=== PATIENT | female | born 1960 | race African-American/Black ===

== ENCOUNTER 2025-03-21 17:01 | Inpatient (IN) | payer OTHER ==
[~2025-03-21] VITALS: Ht 175.3 cm; Wt 112.0 kg
--- NOTE | 2025-03-21 17:14 | ECG ---
[facility] Test Date: 2025-03-21 Test Time: 17:13:36 Pat Name: OVIDIO DUPONT Department: ED Room: 0250 Gender: F Tube Lancer: GP : 1960 Requested By: DESIRE VALDES Order Number: [id number] Reading MD: Dalton Lyn Measurements Intervals [place] Rate: 122 P: 0 ND: 0 QRS: 38 QRSD: 80 T: 54 QT: 309 QTc: 441 Interpretive Statements Atrial fibrillation Ventricular bigeminy Low voltage, precordial leads Electronically Signed On 03-24-2025 17:53:45 PST by Dalton Lyn Please click the below link to view image of tracing.
[2025-03-21 18:04] LABS: Hematocrit 25.6 % (36.0-46.0); Hemoglobin 8.7 g/dL (12.2-16.2); Mean Corpuscular Hemoglobin 30.3 pg (28.0-32.0); Mean Corpuscular Volume 89.4 fL (80.0-100.0); Nucleated Red Blood Cells % 0.0 %
[2025-03-21 18:17] LABS: Chloride 106 mmol/L (98-107); Potassium 3.9 mmol/L (3.5-5.1); Sodium 143 mmol/L (136-145)
[2025-03-21 18:18] LABS: Anion Gap 11 (5-15); Calcium 9.3 mg/dL (8.7-10.4); Carbon Dioxide 26 mmol/L (20-31)
[2025-03-21 18:23] LABS: BUN/Creatinine Ratio 16.3 (10.0-20.0)
[2025-03-21 18:26] LABS: Blood Urea Nitrogen 24 mg/dL (9-23); Glucose 145 mg/dL (74-106)
--- NOTE | 2025-03-21 18:44 | ED.PDOC ---
History of Present Illness HPI Comments 64 y/o obese F presents with c/c of generalized weakness for a few days She suspects onset of symptoms after being bitten by "bugs" in her sleep on 03/18/25. Patient reports being bed-bound and not eating or drinking anything but is still able to urinate and have bowel movements since then. She also mentions not taking her medications for 2 days. Denies any fever, numbness, tingling, shortness of breath, chest pain, or further acute symptoms. HPI: Initial Vitals BP: 142/64 HR: 77 RR:18 O2: 97% Temp: 97.9F Past Medical History: myasthenia gravis, hypertension Past Surgical History: thymectomy, hysterectomy, -eye surgery CRESENCIO: Generalized weakness HPI: Poor Historian. REVIEW OF SYSTEMS: CONSTITUTIONAL: Denies acute: fever, diaphoresis, chills, HEAD: Denies acute: headache, photophobia Eyes: Denies acute: Double vision, vision loss, eye pain, eye discharge. EARS: Denies acute: tinnitus, hearing loss, ear discharge, ear pain, THROAT: Denies acute: sore throat, swelling, difficulty swallowing , pain with swallowing, change in voice. NECK: Denies acute: neck pain, neck swelling, stiff neck. HEART: Denies acute : chest pain, palpitations, LUNGS: Denies acute: SOB, wheezing, cough, hemoptysis ABDOMEN: Denies acute: abdominal pain, Nausea, Vomiting, diarrhea, melena , hematemesis, hematochezia SKIN: Denies acute: rash, redness, lesions, itchiness. EXTREMITIES: Denies acute: calf pain, numbness, tingling, weakness, denies pain in extremity. Denies acute: Low back pain. Neuro: Denies acute: focal neurological deficit, motor or sensory focal neurological deficit, tremors, seizure like activity, confusion, dizziness, change in mental status, loss of bowel or bladder function, cauda equina like symptoms. : Denies acute: dysuria, hematuria, flank pain, increase in urinary frequency. PSYCH: Denies acute: hallucination, suicidal ideation, homicidal ideation. FEMALE: Denies acute: abnormal vaginal bleeding, foul odor, unusual discharge. PHYSICAL EXAM: General: ---no-----acute distress, awake and alert. Head: normocephalic, atraumatic. No raccoon's eyes, no osborne sign. Neck: supple, trachea is midline, no swelling. Throat: Normal phonation. Eyes:, no erythema, no purulent discharge, no proptosis, slightly icterus. Heart: regular rate, regular rhythm, no significant murmur appreciated. Lungs: no apparent respiratory distress, Able to speak in full sentences. No wheezing, no rhonchi, no crackles. No stridors Clear to auscultation bilaterally. Abdomen: non tender to palpation, non distended, soft, no guarding, no rebound, + bowel sounds. Neuro: Awake, Alert, oriented to name, self, situation, follows commands GCS=15. Speech is normal. Skin: no petechia, no purpura, no cyanosis, non-pale, not jaundice. Lower extremities: --no - Pitting edema no deformity, no focal swelling, no calf TTP. Makes eye contact. 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 moves all four extremities. Face: no apparent facial droop. ED COURSE: DISCLAIMER: This medical document was created using an electronic medical record system with voice recognition software and computerized dictation system. Although this document has been carefully reviewed, there might still be some phonetic and typographical errors. Occasional wrong-word or "sound-alike" substitutions may have occurred due to the inherent limitations of voice recognition software. These areas are purely typographical due to imperfections of the software programs and do not reflect any compromise in the patient's medical care. Please read the chart carefully and recognize, using context, where these substitutions have occurred. Chief Complaint: General Weakness Time Seen by MD: 18:15 Reviewed Notes: Nurses Notes Allergies: Coded Allergies: NO KNOWN ALLERGIES (Unverified , 03/21/25) Home Meds Reported Medications Amlodipine Besylate (Amlodipine Besylate) 2.5 Mg Tab, 1 TAB PO DAILY, #30 TAB 5 Refills 03/22/25 Valsartan-Hydrochlorothiazide (Diovan Hct) 160 /12.5 Tab, 1 TAB PO DAILY, #30 TAB 5 Refills 03/22/25 Metoprolol Tartrate (Metoprolol Tartrate) 25 Mg Tab, 1 TAB PO BID, #180 TAB 1 Refill 03/22/25 Apixaban Base (ELIQUIS) 5 Mg Tab, 5 MG PO BID, TAB 03/22/25 Ferrous Sulfate (FERROUS SULFATE) 325 Mg Tb, 325 MG PO, TAB 03/22/25 Information Source: Patient Mode of Arrival: Ambulatory Was a procedure done? Was a procedure done?: No EKG EKG : Pulse Rate (adult): 122 [place]: Normal Cardiac Rhythm: Afib, Aflutter Block: None Hypertrophy: None ST: Normal Comments No STEMI Differential Dx Considerations may include: Includes but not limited to thyroid disease, encephalopathy, electrolyte abnormality, sepsis, infection, intracranial pathology, drug adverse effects, arrhythmia, kidney insufficiency, ACS, CVA, malignancy, anemia X-Ray, Labs, Meds, VS Vital Signs Date Time Temp Pulse Resp B/P (MAP) Pulse Ox O2 Delivery O2 Flow Rate FiO2 03/21/25 21:02 98.9 93 18 109/66 (80) 99 98.9 03/21/25 19:52 76 18 97 Room Air 03/21/25 19:52 98.4 76 18 101/59 (73) 97 98.4 03/21/25 18:44 122 03/21/25 17:13 122 03/21/25 17:04 97.9 77 18 142/64 97 97.9 Lab Test 03/21/25 20:57 03/21/25 18:30 03/21/25 17:54 Range/Units Urine Color Dark-orange Yellow Urine Clarity Ex.turbid Clear Urine pH 6.0 5.0-9.0 Urine Specific [place] 1.017 1.001-1.035 Urine Protein 2+ H Negative Urine Ketones Negative Negative Urine Blood 2+ H Negative /uL Urine Nitrite Negative Negative Urine Bilirubin Negative Negative Urine Urobilinogen 8 H Negative mg/dL Urine Leukocyte Esterase 3+ Negative /uL Urine RBC 26 0 - 4 /hpf Urine WBC Clumps Present None Seen /hpf Urine Microscopic WBC 4957 H 0-5 /HPF Urine Squamous Epithelial Cells Mod <5 /hpf Urine Bacteria Many H None Seen /hpf Urine Mucus Moderate None Seen Urine Creatinine Pending Urine Protein/Creatinine Ratio Pending Urine Sodium Pending Urine Glucose Normal Normal mg/dL Urine Total Protein Pending Sodium Level 141 143 136-145 mmol/L Potassium Level 3.9 3.9 3.5-5.1 mmol/L Chloride Level 105 106 98-107 mmol/L Carbon Dioxide Level 24 26 20-31 mmol/L Anion Gap 12 11 5-15 Blood Urea Nitrogen 20 24 H 9-23 mg/dL Creatinine 1.58 H 1.47 H 0.550-1.02 mg/dL Glomerular Filtration Rate Calc 36 40 >90 mL/min BUN/Creatinine Ratio 12.7 16.3 10.0-20.0 Serum Glucose 144 H 145 H 74-106 mg/dL Lactic Acid Level 1.9 0.4-2.0 mmol/L Calcium Level 9.5 9.3 8.7-10.4 mg/dL Total Bilirubin 3.5 H 0.2-1.0 mg/dL Aspartate Amino Transferase (AST) 29 13-40 U/L Alanine Aminotransferase (ALT) 25 7-40 U/L Alkaline Phosphatase 79 46-116 U/L C-Reactive Protein High Sensitivity 11.43 H <1.0 mg/dL Total Protein 8.1 5.7-8.2 g/dL Albumin 4.2 3.2-4.8 g/dL White Blood Count 8.6 4.4-10.8 10^3/uL Red Blood Count 2.86 L 4.0-5.20 10^6/uL Hemoglobin 8.7 L 12.2-16.2 g/dL Hematocrit 25.6 L 36.0-46.0 % Mean Corpuscular Volume 89.4 80.0-100.0 fL Mean Corpuscular Hemoglobin 30.3 28.0-32.0 pg Mean Corpuscular Hemoglobin Concent 33.9 32.0-36.0 g/dL Red Cell Distribution Width 18.2 H 11.8-14.3 % Platelet Count 258 140-450 10^3/uL Mean Platelet Volume 9.4 6.9-10.8 fL Neutrophils (%) (Auto) 76.8 37.0-80.0 % Lymphocytes (%) (Auto) 13.9 10.0-50.0 % Monocytes (%) (Auto) 8.5 0.0-12.0 % Eosinophils (%) (Auto) 0.2 0.0-7.0 % Basophils (%) (Auto) 0.6 0.0-2.0 % Neutrophils # (Auto) 6.6 1.6-8.6 10 ^3/uL Lymphocytes # (Auto) 1.2 0.4-5.4 10 ^3/uL Monocytes # (Auto) 0.7 0-1.3 10 ^3/uL Eosinophils # (Auto) 0 0-0.8 10 ^3/uL Basophils # (Auto) 0.1 0-0.2 10 ^3/uL Nucleated Red Blood Cells 0.0 % Magnesium Level 2.1 1.6-2.6 mg/dL Iron Level 66 50-170 ug/dL Total Iron Binding Capacity 222 L 250-425 ug/dL Percent Iron Saturation 29.7 15-50 % Ferritin 334.6 H 10-291 ng/mL Troponin I High Sensitivity 25 </=34 ng/L Current Medications Medications (Trade) Dose Ordered Sig/Je Route Start Time Stop Time Status Last Admin Sodium Chloride 1,000 ml @ 1,000 mls/hr Q1H ONCE IV 03/21/25 19:45 03/21/25 20:44 DC 03/21/25 20:10 Ceftriaxone Sodium 50 ml @ 100 mls/hr ONCE ONCE IV 03/21/25 21:30 03/21/25 21:59 DC 03/21/25 21:46 [place] [address] Ph: [phone] DIAGNOSTIC IMAGING Diagnostic Imaging Report : [id number] Signed PATIENT: OVIDIO DUPONT ACCT: [id number] UNIT: [id number] : 1960 LOC: ER ROOM / BED: / AGE / SEX: 64 / F ADM STATUS: REG ER SERVICE 20 ORDERING PHYSICIAN: ALANA BAILEY DO PROCEDURE(s): CXRP - CHEST PORTABLE REASON: weak ORDER NUMBER(s): [id number], ACCESSION NUMBER(s): [id number] CHEST RADIOGRAPH Indication: weak Technique: Single frontal view of the chest was obtained COMPARISON: XR CHEST 1 VIEW on DOS: 06/08/24 FINDINGS: Lines and Tubes: None Lungs: Clear Pleura: No effusion. No pneumothorax. Cardiomediastinal contours: Unremarkable Bones: Median sternotomy. No acute osseous abnormality IMPRESSION: No acute disease. ATED BY: MICHAEL WESLEY MD DICTATED DATE/TIME: 03/21/251905 SIGNED BY: MICHAEL WESLEY MD SIGNED DATE/TIME: 03/21/251905 CC: Time of 1ST Reevaluation: 18:15 Reevaluation 1ST: Unchanged Patient Education/Counseling: Diagnosis, Treatment Family Education/Counseling: No Family Present Comments MDM: patient presented with the above HPI.--generalized weakness----workup was initiated. patient was found with the above mentioned diagnosis. the following medications were ordered: please refer to order lists of meds and tests obtained by myself Dr. Bailey. Patient ED course and VS have been stabilized. Patient has been reassessed in the ED and remained in a stable condition. Pertinent incidental findings were discussed with the patient and/or family. Patient/family voices understanding and is agreeable with plan. Patient has been observed in the ED adequate length of time to insure improvement/stability. Escalation of care considered: Consideration of escalation to observation or admission Fluids and antibiotics were given. Patient had elevated CRP. Suspected possible underlying infection. Antibiotics was initiated. Patient was ADMITTED to the medicine team for further evaluation and treatment of their presentation. All the reports of any imaging studies that were ordered by myself were reviewed by myself. SEPSIS Sepsis Screen Date sepsis recognized/suspect: Mar 21, 2025 Time Sepsis recognized/suspect: 1706 Recent Procedure: No On Antibiotic Therapy: No Respiratory Rate >20: No Heart Rate >90: No Temp<36 C (96.8 F) or >38.3 C: No SBP <90 or MAP <65 mmHG: No New Acute Mental Status Change: No Is the patient on CPAP, BIPAP,: No Physician Orders Electrocardigram (03/21/25 18:21) Chest Portable (03/21/25 18:21) Orthostatic Vital Signs (03/21/25 ) Vital Signs Date Time Temp Pulse Resp B/P (MAP) Pulse Ox O2 Delivery O2 Flow Rate FiO2 03/21/25 21:02 98.9 93 18 109/66 (80) 99 98.9 03/21/25 19:52 76 18 97 Room Air 03/21/25 19:52 98.4 76 18 101/59 (73) 97 98.4 03/21/25 18:44 122 03/21/25 17:13 122 03/21/25 17:04 97.9 77 18 142/64 97 97.9 Laboratory Tests Test 03/21/25 17:54 03/21/25 18:30 White Blood Count 8.6 10^3/uL (4.4-10.8) Lactic Acid Level 1.9 mmol/L (0.4-2.0) Medications Medications Dose Ordered Sig/Je Route Start Time Stop Time Status Last Admin Dose Admin Ceftriaxone Sodium 50 ml @ 100 mls/hr ONCE ONCE IV 03/21/25 21:30 03/21/25 21:59 DC 03/21/25 21:46 Sodium Chloride 1,000 ml @ 1,000 mls/hr Q1H ONCE IV 03/21/25 19:45 03/21/25 20:44 DC 03/21/25 20:10 Departure 1 Departure Time of Disposition: 19:44 Impression: Primary Impression: Anemia Additional Impressions: Generalized weakness UTI (urinary tract infection) Elevated C-reactive protein (CRP) Disposition: ADMITTED INPATIENT Admit to: Tele Condition: Guarded Discharged With: Self Critical Care Note Critical Care Time?: Yes (35 min-critical care time only) I personally scribed for ALANA BAILEY DO ([email or web address]) on 03/21/25 at 18:44. Electronically submitted by Rizwan Hendricks [email or web address]). I personally scribed for ALANA BAILEY DO ([email or web address]) on 03/21/25 at 19:46. Electronically submitted by Rizwan Hendricks [email or web address]). ALANA BAILEY DO Mar 21, 2025 18:44
[2025-03-21 19:03] LABS: Alanine Aminotransferase 25 U/L (7-40); Albumin 4.2 g/dL (3.2-4.8); Alkaline Phosphatase 79 U/L (46-116); Chloride 105 mmol/L (98-107); Potassium 3.9 mmol/L (3.5-5.1); Sodium 141 mmol/L (136-145)
--- NOTE | 2025-03-21 19:09 | DVH ---
CHEST RADIOGRAPH Indication: weak Technique: Single frontal view of the chest was obtained COMPARISON: XR CHEST 1 VIEW on DOS: 06/08/24 FINDINGS: Lines and Tubes: None Lungs: Clear Pleura: No effusion. No pneumothorax. Cardiomediastinal contours: Unremarkable Bones: Median sternotomy. No acute osseous abnormality IMPRESSION: No acute disease.
[2025-03-21 19:46] LABS: Anion Gap 12 (5-15); Carbon Dioxide 24 mmol/L (20-31)
[2025-03-21 19:47] LABS: Calcium 9.5 mg/dL (8.7-10.4)
[2025-03-21 19:51] LABS: BUN/Creatinine Ratio 12.7 (10.0-20.0); Blood Urea Nitrogen 20 mg/dL (9-23)
[2025-03-21 19:52] LABS: Total Protein 8.1 g/dL (5.7-8.2)
[2025-03-21 19:54] LABS: Bilirubin, Total 3.5 mg/dL (0.2-1.0); Glucose 144 mg/dL (74-106)
[2025-03-21] MEDS: SODIUM CHLORIDE 0.9% 1,000 ML IV ONE (20:10)
[2025-03-21 21:03] LABS: Urine Protein, UAD 2+ (Negative); Urine WBC Clumps PRESENT /hpf (None Seen)
--- NOTE | 2025-03-21 23:01 | DVHHP2 ---
History of Present Illness History of Present Illness Patient is 64 years old female with a past medical history of myasthenia gravis, hypertension, atrial fibrillation on Eliquis came with a complaint of generalized weakness and polyuria. As per patient she has been having generalized weakness for last 4 days. Patient also reported having increased frequency and urgency of micturition for the same duration. Patient reported he had some bed bug bite couple of days before. On further inquiry patient reported nausea but no vomiting, poor appetite. Patient also reported having diarrhea for last 3-4 days, watery, nonbloody, 3 to 4 times a day. On asking about low hemoglobin patient reported she has chronic anemia and takes ferrous sulfate at home. Patient denied any fever, joint pain, rash, chest pain no shortness of breaths. Initial lab workup revealed hemoglobin 8.7, hematocrit 25.6, serum creatinine 1.47, BUN 24, lactic acid 1.9, total bilirubin 3.5, CRP 11.4. Urinalysis revealed UTI with leukocyte esterase 3+, WBC 4957, bacteria many. PMH-myasthenia gravis, hypertension, atrial fibrillation PSH- thymectomy, hysterectomy due to fibroid uterus, eye surgery Allergy- NKDA Personal History/ Social History- denies smoking/alcoholism/substance abuse, lives with granddaughter Home medication Mistinon, valsartan 160, metoprolol, amlodipine 2.5 mg, Eliquis 5 mg p.o. b.i.d. Review of Systems Review of Systems Cardiovascular- deny acute chest pain or shortness of breath or cough or palpitation Respiratory denies cough or short of breath or wheezing Musculoskeletal-denies acute joint swelling or tenderness or redness Neurological- denies acute dysarthria, dysphagia, change in vision Psychiatry- denies depression or SI or HI Skin- denies acute rash or purpura Allergies: Coded Allergies: NO KNOWN ALLERGIES (Unverified , 03/21/25) Medications Current Medications Medications Dose Ordered Sig/Je Route Start Time Stop Time Status Last Admin Dose Admin Sodium Chloride 1,000 ml @ 120 mls/hr Q8H20M IV 03/21/25 23:00 UNV Acetaminophen 650 mg Q6HP PRN PO 03/21/25 23:00 UNV Ceftriaxone Sodium 50 ml @ 100 mls/hr DAILY@09 IV 03/22/25 09:00 UNV Metronidazole 100 ml @ 100 mls/hr Q8HR IV 03/21/25 23:00 UNV Pantoprazole Sodium 40 mg DAILY@0600 PO 03/22/25 06:00 UNV Exam Vital Signs Vital Signs Date Time Temp Pulse Resp B/P (MAP) Pulse Ox O2 Delivery O2 Flow Rate FiO2 03/21/25 21:02 98.9 93 18 109/66 (80) 99 98.9 03/21/25 19:52 Room Air Exam General examination- awake, alert, oriented HEENT- PEERLA, no acute nasal discharge Cardiovascular- S1-S2 audible, rate and rhythm irregular, no murmur Respiratory- CTAB, no wheeze or rhonchi Gastrointestinal-nontender, bowel sound+. Nondistended Musculoskeletal-no acute joint swelling or tenderness or redness Lower extremity- no leg edema Neurological- cranial nerves intact, no acute dysarthria or dysphagia Psychiatry- denies depression or SI or HI Skin- no acute rash or purpura Digital rectal examination was done in presence of rn ortho MARIMAR Vargas, external hemorrhoids, no active bleeding noted Labs/Xrays Labs Test 03/21/25 20:57 03/21/25 18:30 03/21/25 17:54 Range/Units Urine Color Dark-orange Yellow Urine Clarity Ex.turbid Clear Urine pH 6.0 5.0-9.0 Urine Specific [place] 1.017 1.001-1.035 Urine Protein 2+ H Negative Urine Ketones Negative Negative Urine Blood 2+ H Negative /uL Urine Nitrite Negative Negative Urine Bilirubin Negative Negative Urine Urobilinogen 8 H Negative mg/dL Urine Leukocyte Esterase 3+ Negative /uL Urine RBC 26 0 - 4 /hpf Urine WBC Clumps Present None Seen /hpf Urine Microscopic WBC 4957 H 0-5 /HPF Urine Squamous Epithelial Cells Mod <5 /hpf Urine Bacteria Many H None Seen /hpf Urine Mucus Moderate None Seen Urine Glucose Normal Normal mg/dL Sodium Level 141 136-145 mmol/L Potassium Level 3.9 3.5-5.1 mmol/L Chloride Level 105 98-107 mmol/L Carbon Dioxide Level 24 20-31 mmol/L Anion Gap 12 5-15 Blood Urea Nitrogen 20 9-23 mg/dL Creatinine 1.58 H 0.550-1.02 mg/dL Glomerular Filtration Rate Calc 36 >90 mL/min BUN/Creatinine Ratio 12.7 10.0-20.0 Serum Glucose 144 H 74-106 mg/dL Lactic Acid Level 1.9 0.4-2.0 mmol/L Calcium Level 9.5 8.7-10.4 mg/dL Total Bilirubin 3.5 H 0.2-1.0 mg/dL Aspartate Amino Transferase (AST) 29 13-40 U/L Alanine Aminotransferase (ALT) 25 7-40 U/L Alkaline Phosphatase 79 46-116 U/L C-Reactive Protein High Sensitivity 11.43 H <1.0 mg/dL Total Protein 8.1 5.7-8.2 g/dL Albumin 4.2 3.2-4.8 g/dL White Blood Count 8.6 4.4-10.8 10^3/uL Red Blood Count 2.86 L 4.0-5.20 10^6/uL Hemoglobin 8.7 L 12.2-16.2 g/dL Hematocrit 25.6 L 36.0-46.0 % Mean Corpuscular Volume 89.4 80.0-100.0 fL Mean Corpuscular Hemoglobin 30.3 28.0-32.0 pg Mean Corpuscular Hemoglobin Concent 33.9 32.0-36.0 g/dL Red Cell Distribution Width 18.2 H 11.8-14.3 % Platelet Count 258 140-450 10^3/uL Mean Platelet Volume 9.4 6.9-10.8 fL Neutrophils (%) (Auto) 76.8 37.0-80.0 % Lymphocytes (%) (Auto) 13.9 10.0-50.0 % Monocytes (%) (Auto) 8.5 0.0-12.0 % Eosinophils (%) (Auto) 0.2 0.0-7.0 % Basophils (%) (Auto) 0.6 0.0-2.0 % Neutrophils # (Auto) 6.6 1.6-8.6 10 ^3/uL Lymphocytes # (Auto) 1.2 0.4-5.4 10 ^3/uL Monocytes # (Auto) 0.7 0-1.3 10 ^3/uL Eosinophils # (Auto) 0 0-0.8 10 ^3/uL Basophils # (Auto) 0.1 0-0.2 10 ^3/uL Nucleated Red Blood Cells 0.0 % Troponin I High Sensitivity 25 </=34 ng/L SEPSIS Sepsis Screen Date sepsis recognized/suspect: Mar 21, 2025 Time Sepsis recognized/suspect: 1706 Recent Procedure: No On Antibiotic Therapy: No Respiratory Rate >20: No Heart Rate >90: No Temp<36 C (96.8 F) or >38.3 C: No SBP <90 or MAP <65 mmHG: No New Acute Mental Status Change: No Is the patient on CPAP, BIPAP,: No Physician Orders Electrocardigram (03/21/25 18:21) Chest Portable (03/21/25 18:21) Orthostatic Vital Signs (03/21/25 ) Admit (03/21/25 22:54) 2 Gm Sodium Diet (03/22/25 Breakfast) Renal Standard(2gna,3gk,Lopho) (03/22/25 Breakfast) Sodium Chloride 0.9% (03/21/25 23:00) Complete Blood Count (03/22/25 04:00) Comprehensive Metabolic Panel (03/22/25 04:00) Cardiac Diet-2gna,Lofat,Lochol (03/22/25 Breakfast) Acetaminophen Tablet (Tylenol Tablet) (03/21/25 23:00) Notify Md Of Changes From Base (03/21/25 22:54) Urine Sodium (03/21/25 22:56) Urine Protein/Creatinine Ratio (03/21/25 ) Urine Creatinine (03/21/25 22:56) Urine Bacterial Culture (03/21/25 22:56) Magnesium (03/21/25 22:56) Ceftriaxone 1gm/50ml (Rocephin) (03/22/25 09:00) Metronidazole 500mg/100ml (Flagyl 500mg/ (03/21/25 23:00) Pantoprazole Tablet (Protonix Tablet) (03/22/25 06:00) Vital Signs Date Time Temp Pulse Resp B/P (MAP) Pulse Ox O2 Delivery O2 Flow Rate FiO2 03/21/25 21:02 98.9 93 18 109/66 (80) 99 98.9 03/21/25 19:52 76 18 97 Room Air 03/21/25 19:52 98.4 76 18 101/59 (73) 97 98.4 03/21/25 18:44 122 03/21/25 17:13 122 03/21/25 17:04 97.9 77 18 142/64 97 97.9 Laboratory Tests Test 03/21/25 17:54 03/21/25 18:30 White Blood Count 8.6 10^3/uL (4.4-10.8) Lactic Acid Level 1.9 mmol/L (0.4-2.0) Medications Medications Dose Ordered Sig/Je Route Start Time Stop Time Status Last Admin Dose Admin Ceftriaxone Sodium 50 ml @ 100 mls/hr ONCE ONCE IV 03/21/25 21:30 03/21/25 21:59 DC 03/21/25 21:46 100 MLS/HR Sodium Chloride 1,000 ml @ 1,000 mls/hr Q1H ONCE IV 03/21/25 19:45 03/21/25 20:44 DC 03/21/25 20:10 1,000 MLS/HR Assessment/Plan Assessment/Plan Assessment and plan # acute complicated UTI -Urinalysis - leukocyte esterase 3+, WBC 4957, bacteria many. -ordered ceftriaxone 1 g IV daily -pending urine CS # AMADOU likely due to VMN -serum creatinine 1.47, BUN 24, -continue IV fluid as prescribed -monitor BMP # moderate normocytic anemia under evaluation # iron-deficiency anemia --hemoglobin 8.7, hematocrit 25.6, -serum ferritin 334, serum iron 666 -pending stool for occult blood test -continue ferrous sulfate p.o. 325 mg daily # acute gastroenteritis -continue IV fluid as prescribed -monitor vitals -ordered stool for WBC, stool bacterial culture, stool ova and parasite # hyperbilirubinemia -serum bilirubin 3.5 -monitor liver function test # history of myasthenia gravis -resume patient's home medication Mestinon 60 mg p.o. b.i.d. # hypertension -resume home medication amlodipine, valsartan, metoprolol # atrial fibrillation -EKG atrial fibrillation, ventricular bigeminy -ordered IV heparin # external hemorrhoids -avoid dehydration and constipation # obesity, BMI 36.8 -patient was counseled about the effect of obesity on health Diet-cardiac and renal diet PCP-patient could not mentioned any specific PCP's name, goes to clinic Goals of care, Code status full code ; discussed with >15 minutes PUD prophylaxis: Pantoprazole DVT prophylaxis: Heparin Plan discussed with Dr. Case , nursing staff, patient Total time spent on patient evaluation, chart review, assessment and plan, discussion discussion >35 minutes Plan discussed with: Patient, Other (RN) My Orders Orders - RALEIGH LIRA Procedure Category Date Status Time Admit ADMIT 03/21/25 Transmitted 22:54 2 Gm Sodium Diet DIET 03/22/25 Transmitted Breakfast Renal DIET 03/22/25 Transmitted Standard(2gna,3gk,Lopho) Breakfast Sodium Chloride 0.9% PHA 03/21/25 Logged 23:00 Complete Blood Count LAB 03/22/25 Verified 04:00 Comprehensive LAB 03/22/25 Verified Metabolic Panel 04:00 Cardiac DIET 03/22/25 Transmitted Diet-2gna,Lofat,Lochol Breakfast Acetaminophen Tablet PHA 03/21/25 Logged (Tylenol Tablet) 23:00 Notify Of Changes ELAINA 03/21/25 In Process From Base 22:54 Urine Sodium LAB 03/21/25 Logged 22:56 Urine LAB 03/21/25 Logged Protein/Creatinine Urine Creatinine LAB 03/21/25 Logged 22:56 Urine Bacterial LANG 03/21/25 Logged Culture 22:56 Magnesium LAB 03/21/25 Logged 22:56 Ceftriaxone 1gm/50ml PHA 03/22/25 Logged (Rocephin) 09:00 Metronidazole PHA 03/21/25 Logged 500mg/100ml (Flagyl 23:00 Pantoprazole Tablet PHA 03/22/25 Logged (Protonix Tablet) 06:00 Date of Service: Mar 21, 2025 Billing Provider: FRED CASE MD Common Visit Codes: [id number] INP/OBS CARE (HIGH) Secondary Visit Codes: [id number] CARE PLAN 30 MINUTES RALEIGH LIRA Mar 21, 2025 23:01
[2025-03-21] MEDS ORDERED: FOLIC ACID 1 MG in D5W 5% 50 ML INJ ONE (23:15)
[2025-03-21] MEDS ORDERED: THIAMINE 100mg/ml INJ (200mg/2ml VIAL) IV ONE (23:15)
[2025-03-21] MEDS ORDERED: LORazepam 2MG/ML-1ML VIAL IV PRN (23:15)
[2025-03-21 23:24] VITALS: PULSE 85; RESP 19; O2SAT 96
[2025-03-21 23:56] LABS: Iron 66.0 ug/dL (50-170)
[2025-03-22] VITALS (9 sets, daily range): BP systolic 107–130; BP diastolic 55–75; PULSE 62–100; RESP 18–20; TEMP 98.2–99.9; O2SAT 95–99
[2025-03-22 00:11] LABS: Total Iron Binding Capacity 222.0 ug/dL (250-425)
[2025-03-22 02:16] LABS: Hematocrit 25.0 % (36.0-46.0); Hemoglobin 8.3 g/dL (12.2-16.2)
[2025-03-22] MEDS ORDERED: APIX5TAB PO (03:37)
[2025-03-22] MEDS ORDERED: AMLO1TAB21 PO (03:37)
[2025-03-22] MEDS ORDERED: METO25TA5 PO (03:37)
[2025-03-22] MEDS ORDERED: FER325T PO (03:37)
[2025-03-22] MEDS ORDERED: VALS160T53 PO (03:37)
[2025-03-22] MEDS ORDERED: HEPARIN DRIP/D5W 100UNITS/ML 250 ML IV SCH (03:45)
[2025-03-22] MEDS: SODIUM CHLORIDE 0.9% 1,000 ML IV ONE (04:58)
[2025-03-22] MEDS: PANTOPRAZOLE 40 MG TAB PO SCH (05:54)
[2025-03-22 06:43] LABS: Hematocrit 22.9 % (36.0-46.0); Hemoglobin 7.6 g/dL (12.2-16.2); Mean Corpuscular Hemoglobin 30.0 pg (28.0-32.0); Mean Corpuscular Volume 90.0 fL (80.0-100.0); Nucleated Red Blood Cells % 0.0 %
[2025-03-22 07:03] LABS: Alanine Aminotransferase 22 U/L (7-40); Albumin 3.9 g/dL (3.2-4.8); Alkaline Phosphatase 71 U/L (46-116); Anion Gap 13 (5-15); BUN/Creatinine Ratio 17.4 (10.0-20.0); Calcium 9.0 mg/dL (8.7-10.4); Carbon Dioxide 23 mmol/L (20-31); Potassium 3.5 mmol/L (3.5-5.1); Sodium 144 mmol/L (136-145); Total Protein 7.4 g/dL (5.7-8.2)
[2025-03-22 07:13] LABS: Bilirubin, Total 2.6 mg/dL (0.2-1.0); Blood Urea Nitrogen 25 mg/dL (9-23); Chloride 108 mmol/L (98-107); Glucose 129 mg/dL (74-106)
[2025-03-22] MEDS: SODIUM CHLORIDE 0.9% 1,000 ML IV SCH ×2 (07:21→08:29)
[2025-03-22] MEDS: FERROUS SULFATE 325mg EC TAB PO SCH (09:26)
[2025-03-22 09:38] LABS: Hematocrit 22.3 % (36.0-46.0); Hemoglobin 7.5 g/dL (12.2-16.2)
[2025-03-22 09:58] LABS: INR 1.09 (0.9-1.15); Partial Thromboplastin Time 25.6 SEC (24.5-34.5); Prothrombin Time 11.5 sec (9.3-11.8)
[2025-03-22] MEDS ORDERED: THIAMINE HCL 100 MG TAB PO SCH (10:00)
[2025-03-22] MEDS ORDERED: METOPROLOL TARTRATE 25 MG TAB PO SCH (10:00)
[2025-03-22] MEDS ORDERED: HEPARIN SODIUM (PORCINE) 5000 UNITS/ML 1ML VIAL SC SCH (10:00)
[2025-03-22] MEDS ORDERED: FOLIC ACID 1 MG TAB PO SCH (10:00)
[2025-03-22] MEDS ORDERED: APIXABAN 5 MG TAB PO SCH (10:00)
--- NOTE | 2025-03-22 12:15 | DVHPNRES ---
Progress Note Date Seen: Mar 22, 2025 Resident Creating Document: DEIDRE RENEE RESIDENT Medical Necessity Reason Pt with a Central, PICC or Fol: No Subjective Review of Systems This is a 64-year-old female with past medical history of myasthenia gravis, hypertension, atrial fibrillation on anticoagulation with Eliquis, presented to the ER with chief complain of generalized weakness since 4 days. Patient reports gradual onset of her symptoms, progressively worsening, associated with loss of appetite and subjective fever. She also reported diarrhea that started 4 days back, initially 2-3 episodes of watery stools, yesterday she reported 6 episodes of watery stools, no blood seen. She also complains of associated nausea and abdominal pain, pain is described cramp like, 10/10, generalized, nonradiating, without relieving or aggravating factors. Patient also reported urinary hesitancy, incomplete voiding and increased frequency of urination. She had similar symptoms in the past due to episode of UTI few years ago. PMHx: Myasthenia gravis, hypertension, atrial fibrillation PSHx: Thymectomy, corrective eye surgery, hysterectomy Social history: Denies smoking, alcohol, drug use; home with family. Full code. Home medication: Pyridostigmine, valsartan, metoprolol, amlodipine, Eliquis Allergic history: No known allergies ROS: Constitutional: Loss of appetite. Denies weight loss, fever and chills. HEENT: Denies changes in vision and hearing. Respiratory: Denies shortness of breath and cough Cardiovascular: Denies chest discomfort or palpitations GI: Loss of appetite, diarrhea, abdominal pain, nausea : Increased urinary frequency, hesitancy, incomplete voiding Musculoskeletal: Denies myalgias and joint pain Skin: Denies rash and pruritus. Neurological: Denies dizziness, headache, vision or hearing problems 03/22/2025: Patient was seen at bedside today. Patient reports improvement in symptoms. Objective vital signs Vital Sign Date Time Temp Pulse Resp B/P (MAP) Pulse Ox O2 Delivery O2 Flow Rate FiO2 03/22/25 08:30 99.6 97 19 130/66 (87) 97 99.6 03/22/25 08:00 Room Air* 0 21 Total Intake and Output 03/21/25 03/21/25 03/22/25 15:00 23:00 07:00 Intake Total 1050 ml 200 ml Output Total 0 ml Balance 1050 ml 200 ml medications Current Medications Medications Dose Ordered Sig/Je Route Start Time Stop Time Status Last Admin Dose Admin Acetaminophen 650 mg Q6HP PRN PO 03/21/25 23:00 Ceftriaxone Sodium 50 ml @ 100 mls/hr Q24H IV 03/22/25 22:00 Metronidazole 100 ml @ 100 mls/hr Q8HR IV 03/21/25 23:00 03/22/25 05:54 100 MLS/HR Pantoprazole Sodium 40 mg DAILY@0600 PO 03/22/25 06:00 Ferrous Sulfate 325 mg DAILY PO 03/22/25 10:00 03/22/25 09:26 325 MG Patient Own Medication 1 tab DAILY PO 03/22/25 10:00 Hold Pyridostigmine [place] 60 mg BID PO 03/22/25 05:45 Sodium Chloride 1,000 ml @ 60 mls/hr [id number] IV 03/22/25 08:15 03/22/25 08:29 60 MLS/HR Examination General: Patient alert and oriented in person, place and time. Patient following commands. HEENT: Drooping left eyelid. Normocephalic, atraumatic, moist mucous membranes Respiratory/pulmonary: Midline thymectomy scar in chest, well healed. Clear lungs bilaterally, vesicular murmurs present in almost all lung morocho, no associated crackles or wheezes. Cardiovascular: Normal heart sounds S1 and S2 with no associated murmurs Abdomen: Abdomen nondistended, there is no pain to palpation in any of the abdominal quadrants, no palpable masses. Extremities: There is no peripheral edema present at the lower extremities. Peripheral Pulses: 3+ Radial (R). 3+ Radial (L). 3+ Dorsalis pedis (R). 3+ Dorsalis pedis(L) Skin: No rashes or pruritus, there is no sacral edema present at this time. Neurological: Intact cranial nerves with no focal neurologic deficits Rectal exam done by Dr Butler on admission shows external hemorrhoids, no active bleeding noted laboratory and microbiology Laboratory Tests 03/22/25 09:11 03/22/25 06:04 Test 03/22/25 06:04 Range/Units Serum Glucose 129 H 74-106 mg/dL Problem List/Assessment/Plan Problem List/Assessment/Plan Complicated UTI AMADOU hemodynamic instability (VMN) U/A: positive for UTI Blood culture, urine culture ordered Continue IV ceftriaxone Avoiding nephrotoxins like NSAIDS, contrast Low salt diet, maintain hydration Repeat BMP Acute gastroenteritis Rule out GI hemorrhage Labs showed neutrophilic leukocytosis Continue IV ceftriaxone 1 g daily Continue IV metronidazole 500 mg 3 times daily Stool occult blood pending GI on board, recommended holding of Eliquis for 2-3 days. If hemoglobin continues to drop, may need EGD. Moderate normocytic anemia Pending stool for occult blood test Discontinued ferrous sulfate based on iron panel Hyperbilirubinemia Serum bilirubin 3.5 Monitor liver function test Myasthenia gravis Resume patient's home medication Mestinon 60 mg p.o. b.i.d. Hypertension Home medications reconciled Continue amlodipine, valsartan, metoprolol Atrial fibrillation EKG atrial fibrillation, ventricular bigeminy Holding off anticoagulants based on GI recommendations External hemorrhoids Avoid dehydration and constipation Obesity, BMI 36.8 Counseled on lifestyle and diet DIET: Cardiac, renal diet DVT PROPHYLAXIS: Holding of anticoagulation as per GIs recommendation GI PROPHYLAXIS: Protonix CODE STATUS: Goals of care discussed with patient at bedside for more than 28 minutes. Full code DISPOSITION: Med/surge This medical document was created using an electronic medical record system with [employer] direct computerized dictation system. Although this document has been carefully reviewed, there may still be some phonetic and typographical errors. These areas are purely typographical due to imperfections of the software programs, and do not reflect any compromise in the patient's medical care. Patient's status and plan discussed with the patient. Case discussed with Dr. Easton Plan discussed with: Patient, Other (Nurses) My Orders My Orders Orders - DEIDRE RENEE RESIDENT Procedure Category Date Status Time Covid19 Antigen [facility] 03/22/25 Logged Rapid Influenza A&B LAB 03/22/25 Logged 10:47 Date of Service: Mar 22, 2025 Billing Provider: JOSE EASTON MD Common Visit Codes: [id number] INP/OBS CARE(HIGH) DEIDRE RENEE RESIDENT Mar 22, 2025 12:15 JOSE EASTON MD Mar 23, 2025 10:02
[2025-03-22] MEDS ORDERED: hydroCHLOROthiazide 25 MG TAB PO SCH (12:43)
[2025-03-22 15:04] LABS: COVID19 ANTIGEN SOFIA FIA NEGATIVE (NEGATIVE)
--- NOTE | 2025-03-22 15:53 | DVHINCON2 ---
Date of service: Mar 22, [address] Butler Reason for Consultation Anemia abdominal pain possible GI bleed History of Present Illness This 64-year-old female presented to the emergency room with complaints of generalized weakness and polyuria patient has got history of myasthenia gravis and hypertension and atrial fibrillation for which she takes Eliquis She was found to be anemic Patient has complaints of some nausea some diarrhea also no hematemesis or melena Hemoglobin was found to be 8.7 on admission which was decreased to 7.6 now Past Medical History Myasthenia gravis hypertension atrial fibrillation on Eliquis Past Surgical History Thymectomy myasthenia gravis hypertension eye surgery hysterectomy Family History: FH: cancer G8 MOTHER G8 FATHER Family History Noncontributory Social History Denies smoking or drink Allergies: Coded Allergies: NO KNOWN ALLERGIES (Unverified , 03/21/25) Home Meds Reported Medications Amlodipine Besylate (Amlodipine Besylate) 2.5 Mg Tab, 1 TAB PO DAILY, #30 TAB 5 Refills 03/22/25 Valsartan-Hydrochlorothiazide (Diovan Hct) 160 /12.5 Tab, 1 TAB PO DAILY, #30 TAB 5 Refills 03/22/25 Metoprolol Tartrate (Metoprolol Tartrate) 25 Mg Tab, 1 TAB PO BID, #180 TAB 1 Refill 03/22/25 Apixaban Base (ELIQUIS) 5 Mg Tab, 5 MG PO BID, TAB 03/22/25 Ferrous Sulfate (FERROUS SULFATE) 325 Mg Tb, 325 MG PO, TAB 03/22/25 Current Medications Current Medications Medications (Trade) Dose Ordered Sig/Je Route PRN Reason Start Time Stop Time Status Last Admin Sodium Chloride 1,000 ml @ 120 mls/hr Q8H20M IV 03/21/25 23:00 03/22/25 08:06 DC 03/22/25 07:22 Acetaminophen (Tylenol Tablet) 650 mg Q6HP PRN PO PAIN SCALE 1-3 OR TEMP>100.4 03/21/25 23:00 Ceftriaxone Sodium 50 ml @ 100 mls/hr Q24H IV 03/22/25 22:00 Metronidazole 100 ml @ 100 mls/hr Q8HR IV 03/21/25 23:00 03/22/25 13:57 Pantoprazole Sodium (Protonix Tablet) 40 mg DAILY@0600 PO 03/22/25 06:00 Thiamine HCl 100 mg DAILY PO 03/22/25 10:00 03/21/25 23:15 DC Folic Acid 1 mg DAILY PO 03/22/25 10:00 03/21/25 23:15 DC Folic Acid 1 mg/ Magnesium Sulfate 8 meq/ Multivitamins 10 ml/Thiamine HCl 100 mg/Sodium Chloride 1,013.2 ml @ 126.247 mls/hr DAILY@1800 INJ 03/22/25 18:00 03/21/25 23:15 DC Lorazepam (Ativan Inj) 1 mg Q2HPRN PRN IV ETOH-SEE PROTOCOL 03/21/25 23:15 03/21/25 23:15 DC Heparin Sodium (Porcine) 5,000 units Q12HR SC 03/22/25 10:00 03/22/25 03:43 DC Apixaban (Eliquis) 5 mg BID PO 03/22/25 10:00 03/22/25 05:48 DC Ferrous Sulfate 325 mg DAILY PO 03/22/25 10:00 03/22/25 09:26 Metoprolol Tartrate (Lopressor Tablet) 25 mg BID PO 03/22/25 10:00 03/22/25 08:20 DC Amlodipine Besylate (Norvasc Tablet) 2.5 mg DAILY PO 03/22/25 10:00 03/22/25 08:20 DC Patient Own Medication 1 tab DAILY PO 03/22/25 10:00 03/22/25 12:41 DC Heparin Sodium/ Dextrose 250 ml @ 20.358 mls/ hr [id number] IV 03/22/25 03:45 03/22/25 10:26 DC Pyridostigmine [place] (PYRIDOstigmine [place]) 60 mg BID PO 03/22/25 05:45 Sodium Chloride 1,000 ml @ 60 mls/hr [id number] IV 03/22/25 08:15 03/22/25 08:29 Valsartan (Diovan) 160 mg DAILY PO 03/22/25 12:41 03/22/25 12:43 DC Hydrochlorothiazide (hydroCHLOROthiazide TABLET) 12.5 mg DAILY PO 03/22/25 12:43 Hold Valsartan (Diovan) 160 mg DAILY PO 03/22/25 12:44 Hold Apixaban (Eliquis) 5 mg BID PO 03/22/25 22:00 Review of Systems Noncontributory Vital Signs Vital Signs Date Time Temp Pulse Resp B/P (MAP) Pulse Ox O2 Delivery O2 Flow Rate FiO2 03/22/25 13:00 99.1 88 19 107/75 (86) 97 99.1 03/22/25 08:00 Room Air* 0 21 Physical Exam Moderately built and nourished female no acute distress HEENT exam mild pallor Lungs are clear Cardiovascular unremarkable except for irregular rhythm Abdomen is soft no tenderness no rigidity no guarding no masses Extremities no edema Labs/Diagnostic Data Labs Test 03/22/25 12:41 03/22/25 09:11 03/22/25 07:16 03/22/25 06:04 Range/Units Influenza Type A Antigen Negative Negative Influenza Type B Antigen Negative Negative SARS-CoV-2 Antigen (Rapid) Negative NEGATIVE Hemoglobin 7.5 L 12.2-16.2 g/dL Hematocrit 22.3 L 36.0-46.0 % Prothrombin Time 11.5 9.3-11.8 sec Prothrombin Time INR 1.09 0.9-1.15 Activated Partial Thromboplast Time 25.6 24.5-34.5 SEC Lactic Acid Level 1.4 0.4-2.0 mmol/L White Blood Count 7.7 4.4-10.8 10^3/uL Red Blood Count 2.54 L 4.0-5.20 10^6/uL Mean Corpuscular Volume 90.0 80.0-100.0 fL Mean Corpuscular Hemoglobin 30.0 28.0-32.0 pg Mean Corpuscular Hemoglobin Concent 33.3 32.0-36.0 g/dL Red Cell Distribution Width 17.9 H 11.8-14.3 % Platelet Count 226 140-450 10^3/uL Mean Platelet Volume 10.5 6.9-10.8 fL Neutrophils (%) (Auto) 73.8 37.0-80.0 % Lymphocytes (%) (Auto) 14.7 10.0-50.0 % Monocytes (%) (Auto) 10.5 0.0-12.0 % Eosinophils (%) (Auto) 0.5 0.0-7.0 % Basophils (%) (Auto) 0.5 0.0-2.0 % Neutrophils # (Auto) 5.7 1.6-8.6 10 ^3/uL Lymphocytes # (Auto) 1.1 0.4-5.4 10 ^3/uL Monocytes # (Auto) 0.8 0-1.3 10 ^3/uL Eosinophils # (Auto) 0 0-0.8 10 ^3/uL Basophils # (Auto) 0 0-0.2 10 ^3/uL Nucleated Red Blood Cells 0.0 % Reticulocyte Count (auto) 6.76 H 0.5-1.5 % Sodium Level 144 136-145 mmol/L Potassium Level 3.5 3.5-5.1 mmol/L Chloride Level 108 H 98-107 mmol/L Carbon Dioxide Level 23 20-31 mmol/L Anion Gap 13 5-15 Blood Urea Nitrogen 25 H 9-23 mg/dL Creatinine 1.44 H 0.550-1.02 mg/dL Glomerular Filtration Rate Calc 41 >90 mL/min BUN/Creatinine Ratio 17.4 10.0-20.0 Serum Glucose 129 H 74-106 mg/dL Hemoglobin A1c < 3.8 <5.7 % A1C Calcium Level 9.0 8.7-10.4 mg/dL Total Bilirubin 2.6 H 0.2-1.0 mg/dL Direct Bilirubin 1.0 H <0.3 mg/dL Aspartate Amino Transferase (AST) 25 13-40 U/L Alanine Aminotransferase (ALT) 22 7-40 U/L Alkaline Phosphatase 71 46-116 U/L Lactate Dehydrogenase 346 H 120-246 U/L Total Protein 7.4 5.7-8.2 g/dL Albumin 3.9 3.2-4.8 g/dL Thyroid Stimulating Hormone (TSH) 1.79 0.55-4.78 uIU/mL Test 03/21/25 20:57 03/21/25 18:30 03/21/25 17:54 Range/Units Urine Color Dark-orange Yellow Urine Clarity Ex.turbid Clear Urine pH 6.0 5.0-9.0 Urine Specific [place] 1.017 1.001-1.035 Urine Protein 2+ H Negative Urine Ketones Negative Negative Urine Blood 2+ H Negative /uL Urine Nitrite Negative Negative Urine Bilirubin Negative Negative Urine Urobilinogen 8 H Negative mg/dL Urine Leukocyte Esterase 3+ Negative /uL Urine RBC 26 0 - 4 /hpf Urine WBC Clumps Present None Seen /hpf Urine Microscopic WBC 4957 H 0-5 /HPF Urine Squamous Epithelial Cells Mod <5 /hpf Urine Bacteria Many H None Seen /hpf Urine Mucus Moderate None Seen Urine Glucose Normal Normal mg/dL C-Reactive Protein High Sensitivity 11.43 H <1.0 mg/dL Magnesium Level 2.1 1.6-2.6 mg/dL Iron Level 66 50-170 ug/dL Total Iron Binding Capacity 222 L 250-425 ug/dL Percent Iron Saturation 29.7 15-50 % Ferritin 334.6 H 10-291 ng/mL Troponin I High Sensitivity 25 </=34 ng/L Microbiology Date/Time Source Procedure Growth Status 03/22/25 09:20 Nose MRSA Screen - Final Complete Assessment 64-year-old with a history of myasthenia hypertension atrial fibrillation on Eliquis now with complaints of weakness anemia and nausea anorexia. Hemoglobin was found to be 8.6 has come down to 7now Denied Any gross bleeding Possible gastritis or ulcer disease or other pathology can not be especially with the Eliquis Plan/Recommendation We will recommend to hold Eliquis for couple of days if okay with Cardiology Follow the hemoglobin and crit close Stool for occult blood If hemoglobin continues to drop may need an EGD evaluation and other workup as necessary after holding the Eliquis Thank you Dr. Camejo Plan discussed with: Patient ANTONIETTA CAMEJO MD Mar 22, 2025 15:53
[2025-03-22] MEDS: APIXABAN 5 MG TAB PO SCH (16:00)
[2025-03-22] MEDS ORDERED: FOLIC ACID 1 MG, MAGNESIUM SULF SDV 50% 8 MEQ, MULTIPLE VITAMIN 10 ML, THIAMINE INJ 100... INJ SCH (18:00)
[2025-03-22] MEDS: ACETAMINOPHEN 325 MG TAB PO PRN (22:21)
[2025-03-22 23:13] LABS: Hematocrit 25.0 % (36.0-46.0); Hemoglobin 7.8 g/dL (12.2-16.2)
[2025-03-23] VITALS (8 sets, daily range): BP systolic 103–129; BP diastolic 51–87; PULSE 69–93; RESP 16–20; TEMP 98–98.5; O2SAT 98–100
[2025-03-23 05:56] LABS: Hemoglobin 7.9 g/dL (12.2-16.2); Mean Corpuscular Hemoglobin 30.1 pg (28.0-32.0); Nucleated Red Blood Cells % 0.0 %
[2025-03-23 05:58] LABS: Hematocrit 24.1 % (36.0-46.0); Mean Corpuscular Volume 91.7 fL (80.0-100.0)
[2025-03-23 06:11] LABS: Anion Gap 14 (5-15); Calcium 9.3 mg/dL (8.7-10.4); Carbon Dioxide 22 mmol/L (20-31); Sodium 145 mmol/L (136-145)
[2025-03-23 06:14] LABS: Chloride 109 mmol/L (98-107); Potassium 3.4 mmol/L (3.5-5.1)
[2025-03-23 06:18] LABS: BUN/Creatinine Ratio 19.1 (10.0-20.0); Blood Urea Nitrogen 21 mg/dL (9-23); Glucose 105 mg/dL (74-106)
[2025-03-23] MEDS ORDERED: POTASSIUM EFFERVESENT TAB 25 MEQ PO ONE (06:30)
[2025-03-23 10:19] LABS: Hemoglobin 7.9 g/dL (12.2-16.2)
[2025-03-23 10:22] LABS: Hematocrit 24.4 % (36.0-46.0)
--- NOTE | 2025-03-23 13:42 | DVHPNRES ---
Progress Note Date Seen: Mar 23, 2025 Resident Creating Document: KARELY CUEVAS RESIDENT Medical Necessity Reason Pt with a Central, PICC or Fol: No Subjective Review of Systems This is a 64-year-old female with past medical history of myasthenia gravis, hypertension, atrial fibrillation on anticoagulation with Eliquis, presented to the ER with chief complain of generalized weakness since 4 days. Patient reports gradual onset of her symptoms, progressively worsening, associated with loss of appetite and subjective fever. She also reported diarrhea that started 4 days back, initially 2-3 episodes of watery stools, yesterday she reported 6 episodes of watery stools, no blood seen. She also complains of associated nausea and abdominal pain, pain is described cramp like, 10/10, generalized, nonradiating, without relieving or aggravating factors. Patient also reported urinary hesitancy, incomplete voiding and increased frequency of urination. She had similar symptoms in the past due to episode of UTI few years ago. PMHx: Myasthenia gravis, hypertension, atrial fibrillation PSHx: Thymectomy, corrective eye surgery, hysterectomy Social history: Denies smoking, alcohol, drug use; home with family. Full code. Home medication: Pyridostigmine, valsartan, metoprolol, amlodipine, Eliquis Allergic history: No known allergies 03/22/2025: Patient was seen at bedside today. Patient reports improvement in symptoms. 03/23: Patient seen at bedside. Patient states that she was bit by an insect before admission today held Eliquis for possible EGD . GI following. patient's last bowel movement was on Sunday . Hypokalemia was corrected. Monitor H and H tomorrow morning if stable can be discharged. Objective vital signs Vital Sign Date Time Temp Pulse Resp B/P (MAP) Pulse Ox O2 Delivery O2 Flow Rate FiO2 03/23/25 08:00 89 18 98 Room Air* 0 21 03/23/25 05:13 98.4 108/51 (70) 98.4 Total Intake and Output 03/22/25 03/22/25 03/23/25 15:00 23:00 07:00 Intake Total 100 ml 250 ml Balance 100 ml 250 ml medications Current Medications Medications Dose Ordered Sig/Je Route Start Time Stop Time Status Last Admin Dose Admin Acetaminophen 650 mg Q6HP PRN PO 03/21/25 23:00 03/22/25 22:21 650 MG Ceftriaxone Sodium 50 ml @ 100 mls/hr Q24H IV 03/22/25 22:00 03/22/25 22:00 100 MLS/HR Metronidazole 100 ml @ 100 mls/hr Q8HR IV 03/21/25 23:00 03/23/25 05:32 100 MLS/HR Pantoprazole Sodium 40 mg DAILY@0600 PO 03/22/25 06:00 Pyridostigmine [place] 60 mg BID PO 03/22/25 05:45 Sodium Chloride 1,000 ml @ 60 mls/hr [id number] IV 03/22/25 08:15 03/23/25 00:55 60 MLS/HR Hydrochlorothiazide 12.5 mg DAILY PO 03/22/25 12:43 Hold Valsartan 160 mg DAILY PO 03/22/25 12:44 Hold Examination General: Patient alert and oriented in person, place and time. Patient following commands. HEENT: Drooping left eyelid. Normocephalic, atraumatic, moist mucous membranes Respiratory/pulmonary: Midline thymectomy scar in chest, well healed. Clear lungs bilaterally, vesicular murmurs present in almost all lung morocho, no associated crackles or wheezes. Cardiovascular: Normal heart sounds S1 and S2 with no associated murmurs Abdomen: Abdomen nondistended, there is no pain to palpation in any of the abdominal quadrants, no palpable masses. Extremities: There is no peripheral edema present at the lower extremities. Peripheral Pulses: 3+ Radial (R). 3+ Radial (L). 3+ Dorsalis pedis (R). 3+ Dorsalis pedis(L) Skin: No rashes or pruritus, there is no sacral edema present at this time. Neurological: Intact cranial nerves with no focal neurologic deficits Rectal exam done by Dr Butler on admission shows external hemorrhoids, no active bleeding noted laboratory and microbiology Laboratory Tests 03/23/25 10:07 03/23/25 04:51 Test 03/23/25 04:51 Range/Units Serum Glucose 105 74-106 mg/dL Microbiology Date/Time Source Procedure Growth Status 03/22/25 09:20 Nose MRSA Screen - Final Complete 03/22/25 09:19 Blood Blood Culture - Preliminary NO GROWTH AFTER 24 HOURS OF INCUBATION. Resulted 03/21/25 20:57 Voided Urine Urine Culture - Preliminary Resulted Problem List/Assessment/Plan Problem List/Assessment/Plan Complicated UTI AMADOU hemodynamic instability (VMN) U/A: positive for UTI Blood culture, urine culture ordered Continue IV ceftriaxone Avoiding nephrotoxins like NSAIDS, contrast Low salt diet, maintain hydration Repeat BMP Acute gastroenteritis Rule out GI hemorrhage Labs showed neutrophilic leukocytosis Continue IV ceftriaxone 1 g daily Continue IV metronidazole 500 mg 3 times daily Stool occult blood pending GI on board, recommended holding of Eliquis for 2-3 days. If hemoglobin continues to drop, may need EGD. Moderate normocytic anemia Pending stool for occult blood test Discontinued ferrous sulfate based on iron panel Hyperbilirubinemia Serum bilirubin 3.5 Monitor liver function test Myasthenia gravis Resume patient's home medication Mestinon 60 mg p.o. b.i.d. Hypertension Home medications reconciled Continue amlodipine, valsartan, metoprolol Atrial fibrillation EKG atrial fibrillation, ventricular bigeminy Holding off anticoagulants based on GI recommendations External hemorrhoids Avoid dehydration and constipation Hypokalemia Obesity, BMI 36.8 Counseled on lifestyle and diet DIET: Cardiac, renal diet DVT PROPHYLAXIS: Holding of anticoagulation as per GIs recommendation GI PROPHYLAXIS: Protonix CODE STATUS: Goals of care discussed with patient at bedside for more than 28 minutes. Full code DISPOSITION: Med/surge Patient's status and plan discussed with the patient. Case discussed with Dr. Easton Plan discussed with: Patient Date of Service: Mar 23, 2025 Billing Provider: JOSE EASTON MD Common Visit Codes: [id number] INP/OBS CARE(HIGH) KARELY CUEVAS RESIDENT Mar 23, 2025 13:42 JOSE EASTON MD Mar 23, 2025 21:43
[2025-03-23 18:34] LABS: Protein, Urine 81.9 mg/dL (1-14)
--- NOTE | 2025-03-23 19:19 | DVHPN2 ---
Progress Note - Dictate Date Seen: Mar 23, 2025 Medical Necessity Reason Pt with a Central, PICC or Fol: No Subjective Patient is doing fine no gross bleeding Did not give a stool sample yet for occult blood Hemoglobin is stable vital signs Vital Sign Date Time Temp Pulse Resp B/P (MAP) Pulse Ox O2 Delivery O2 Flow Rate FiO2 03/23/25 16:30 98.0 73 16 109/87 (94) 100 98.0 03/23/25 08:00 Room Air* 0 21 Total Intake and Output 03/22/25 03/22/25 03/23/25 15:00 23:00 07:00 Intake Total 100 ml 250 ml Balance 100 ml 250 ml medications Current Medications Medications Dose Ordered Sig/Je Route Start Time Stop Time Status Last Admin Dose Admin Acetaminophen 650 mg Q6HP PRN PO 03/21/25 23:00 03/22/25 22:21 650 MG Ceftriaxone Sodium 50 ml @ 100 mls/hr Q24H IV 03/22/25 22:00 03/22/25 22:00 100 MLS/HR Metronidazole 100 ml @ 100 mls/hr Q8HR IV 03/21/25 23:00 03/23/25 14:09 100 MLS/HR Pantoprazole Sodium 40 mg DAILY@0600 PO 03/22/25 06:00 Pyridostigmine [place] 60 mg BID PO 03/22/25 05:45 Hydrochlorothiazide 12.5 mg DAILY PO 03/22/25 12:43 Hold Valsartan 160 mg DAILY PO 03/22/25 12:44 Hold objective Abdomen is soft nontender no masses No bleeding Hemoglobin is stable Patient is on Eliquis and has got myasthenia laboratory and microbiology Laboratory Tests 03/23/25 10:07 03/23/25 04:51 Test 03/23/25 04:51 Range/Units Serum Glucose 105 74-106 mg/dL Assessment/Plan 64-year-old with a history of myasthenia hypertension atrial fibrillation on Eliquis now with complaints of weakness anemia and nausea anorexia. Hemoglobin was found to be 8.6 has come down to 7now Denied Any gross bleeding Patient's symptoms are better no nausea no vomiting no anorexia nonbleeding Hemoglobin is stable Patient is on Eliquis We will recommend to follow as an outpatient and if the hemoglobin falls or there is any gross bleeding then we will recommend GI workup otherwise maybe a Hematology evaluation patient and follow-up in the GI as an outpatient soon Thank you Dr. Camejo Plan discussed with: Patient ANTONIETTA CAMEJO MD Mar 23, 2025 19:19
[2025-03-23 22:07] LABS: Hematocrit 24.2 % (36.0-46.0); Hemoglobin 7.7 g/dL (12.2-16.2)
[2025-03-24] VITALS (7 sets, daily range): BP systolic 108–136; BP diastolic 53–90; PULSE 74–91; RESP 16–20; TEMP 97.1–98.6; O2SAT 94–99
[2025-03-24 06:42] LABS: Anion Gap 10 (5-15); Carbon Dioxide 26 mmol/L (20-31)
[2025-03-24 06:43] LABS: Calcium 9.1 mg/dL (8.7-10.4)
[2025-03-24 06:45] LABS: Hematocrit 21.3 % (36.0-46.0); Hemoglobin 7.2 g/dL (12.2-16.2); Mean Corpuscular Hemoglobin 30.3 pg (28.0-32.0); Mean Corpuscular Volume 89.9 fL (80.0-100.0); Nucleated Red Blood Cells % 0.1 %
[2025-03-24 06:48] LABS: BUN/Creatinine Ratio 22.0 (10.0-20.0); Blood Urea Nitrogen 22 mg/dL (9-23)
[2025-03-24 06:52] LABS: Chloride 110 mmol/L (98-107); Glucose 109 mg/dL (74-106); Potassium 3.4 mmol/L (3.5-5.1); Sodium 146 mmol/L (136-145)
[2025-03-24] MEDS: POTASSIUM EFFERVESENT TAB 25 MEQ PO ONE (08:37)
--- NOTE | 2025-03-24 16:34 | DVHPNRES ---
Progress Note Date Seen: Mar 24, 2025 Resident Creating Document: KARELY CUEVAS RESIDENT Medical Necessity Reason Pt with a Central, PICC or Fol: No Subjective Review of Systems This is a 64-year-old female with past medical history of myasthenia gravis, hypertension, atrial fibrillation on anticoagulation with Eliquis, presented to the ER with chief complain of generalized weakness since 4 days. Patient reports gradual onset of her symptoms, progressively worsening, associated with loss of appetite and subjective fever. She also reported diarrhea that started 4 days back, initially 2-3 episodes of watery stools, yesterday she reported 6 episodes of watery stools, no blood seen. She also complains of associated nausea and abdominal pain, pain is described cramp like, 10/10, generalized, nonradiating, without relieving or aggravating factors. Patient also reported urinary hesitancy, incomplete voiding and increased frequency of urination. She had similar symptoms in the past due to episode of UTI few years ago. PMHx: Myasthenia gravis, hypertension, atrial fibrillation PSHx: Thymectomy, corrective eye surgery, hysterectomy Social history: Denies smoking, alcohol, drug use; home with family. Full code. Home medication: Pyridostigmine, valsartan, metoprolol, amlodipine, Eliquis Allergic history: No known allergies 03/22/2025: Patient was seen at bedside today. Patient reports improvement in symptoms. 03/23: Patient seen at bedside. Patient states that she was bit by an insect before admission today held Eliquis for possible EGD . GI following. patient's last bowel movement was on Sunday . Hypokalemia was corrected. Monitor H and H tomorrow morning if stable can be discharged. 03/24/25: patient seen at bedside. Patient today has no new complaints. GI following, hemoglobin decreased to 7.2. Patient has not had a bowel movement since Sunday. Objective vital signs Vital Sign Date Time Temp Pulse Resp B/P (MAP) Pulse Ox O2 Delivery O2 Flow Rate FiO2 03/24/25 13:00 98.3 88 19 118/90 (99) 99 98.3 03/24/25 08:16 Room Air* 0 21 Total Intake and Output 03/23/25 03/23/25 03/24/25 15:00 23:00 07:00 Intake Total 200 ml 900 ml Output Total 200 ml Balance 200 ml 700 ml medications Current Medications Medications Dose Ordered Sig/Je Route Start Time Stop Time Status Last Admin Dose Admin Acetaminophen 650 mg Q6HP PRN PO 03/21/25 23:00 03/22/25 22:21 650 MG Ceftriaxone Sodium 50 ml @ 100 mls/hr Q24H IV 03/22/25 22:00 03/23/25 21:40 100 MLS/HR Metronidazole 100 ml @ 100 mls/hr Q8HR IV 03/21/25 23:00 03/24/25 13:17 100 MLS/HR Pantoprazole Sodium 40 mg DAILY@0600 PO 03/22/25 06:00 Pyridostigmine Demorest 60 mg BID PO 03/22/25 05:45 Hydrochlorothiazide 12.5 mg DAILY PO 03/22/25 12:43 Hold Valsartan 160 mg DAILY PO 03/22/25 12:44 Hold Examination General: Patient alert and oriented in person, place and time. Patient following commands. HEENT: Drooping left eyelid. Normocephalic, atraumatic, moist mucous membranes Respiratory/pulmonary: Midline thymectomy scar in chest, well healed. Clear lungs bilaterally, vesicular murmurs present in almost all lung morocho, no associated crackles or wheezes. Cardiovascular: Normal heart sounds S1 and S2 with no associated murmurs Abdomen: Abdomen nondistended, there is no pain to palpation in any of the abdominal quadrants, no palpable masses. Extremities: There is no peripheral edema present at the lower extremities. Peripheral Pulses: 3+ Radial (R). 3+ Radial (L). 3+ Dorsalis pedis (R). 3+ Dorsalis pedis(L) Skin: No rashes or pruritus, there is no sacral edema present at this time. Neurological: Intact cranial nerves with no focal neurologic deficits Rectal exam done by Dr Butler on admission shows external hemorrhoids, no active bleeding noted laboratory and microbiology Laboratory Tests 03/24/25 06:09 Test 03/24/25 06:09 Range/Units Serum Glucose 109 H 74-106 mg/dL Microbiology Date/Time Source Procedure Growth Status 03/22/25 09:20 Nose MRSA Screen - Final Complete 03/22/25 09:19 Blood Blood Culture - Preliminary NO GROWTH AFTER 48 HOURS OF INCUBATION. Resulted 03/21/25 20:57 Voided Urine Urine Culture - Final Complete Problem List/Assessment/Plan Problem List/Assessment/Plan Complicated UTI AMADOU hemodynamic instability (VMN) U/A: positive for UTI Blood culture, urine culture ordered Continue IV ceftriaxone Avoiding nephrotoxins like NSAIDS, contrast Low salt diet, maintain hydration Repeat BMP Acute gastroenteritis Rule out GI hemorrhage Labs showed neutrophilic leukocytosis Continue IV ceftriaxone 1 g daily Continue IV metronidazole 500 mg 3 times daily Stool occult blood pending GI on board, recommended holding of Eliquis for 2-3 days. If hemoglobin continues to drop, may need EGD. Moderate normocytic anemia Pending stool for occult blood test Discontinued ferrous sulfate based on iron panel Hyperbilirubinemia Serum bilirubin 3.5 Monitor liver function test Myasthenia gravis Resume patient's home medication Mestinon 60 mg p.o. b.i.d. Hypertension Home medications reconciled Continue amlodipine, valsartan, metoprolol Atrial fibrillation EKG atrial fibrillation, ventricular bigeminy Holding off anticoagulants based on GI recommendations External hemorrhoids Avoid dehydration and constipation Hypokalemia - replaced Obesity, BMI 36.8 Counseled on lifestyle and diet DIET: Cardiac, renal diet DVT PROPHYLAXIS: Holding of anticoagulation as per GIs recommendation GI PROPHYLAXIS: Protonix CODE STATUS: Goals of care discussed with patient at bedside for more than 28 minutes. Full code DISPOSITION: Med/surge Patient's status and plan discussed with the patient. Case discussed with Dr. Easton Plan discussed with: Patient Date of Service: Mar 24, 2025 Billing Provider: JOSE EASTON MD Common Visit Codes: [id number] INP/OBS CARE(HIGH) KARELY CUEVAS RESIDENT Mar 24, 2025 16:34 JOSE EASTON MD Mar 24, 2025 17:52
[2025-03-24] MEDS: POLYETHYLENE GLYCOL 17 GM PWDR PO ONE (17:10)
[2025-03-25 01:00] VITALS: BP 132/72; PULSE 97; RESP 17; TEMP 97.6; O2SAT 95
[2025-03-25 05:00] VITALS: BP 117/68; PULSE 90; RESP 18; TEMP 97.6; O2SAT 99
[2025-03-25 07:06] LABS: Hematocrit 21.6 % (36.0-46.0); Hemoglobin 7.3 g/dL (12.2-16.2); Mean Corpuscular Hemoglobin 30.0 pg (28.0-32.0); Mean Corpuscular Volume 89.1 fL (80.0-100.0); Nucleated Red Blood Cells % 0.0 %
[2025-03-25 07:12] LABS: Anion Gap 11 (5-15); Carbon Dioxide 26 mmol/L (20-31)
[2025-03-25 07:13] LABS: Calcium 8.9 mg/dL (8.7-10.4)
[2025-03-25 07:18] LABS: BUN/Creatinine Ratio 14.4 (10.0-20.0); Blood Urea Nitrogen 14 mg/dL (9-23); Glucose 100 mg/dL (74-106)
[2025-03-25 07:23] LABS: Chloride 109 mmol/L (98-107); Potassium 3.3 mmol/L (3.5-5.1); Sodium 146 mmol/L (136-145)
[2025-03-25] MEDS ORDERED: POTASSIUM EFFERVESENT TAB 25 MEQ GT ONE (08:00)
[2025-03-25 09:00] VITALS: BP 117/76; PULSE 87; RESP 17; TEMP 98.4; O2SAT 97
--- NOTE | 2025-03-25 09:15 | DVH ---
Date: 03/25/2025 07:52 AM Examination: XY KUB ABDOMEN SINGLE VIEW History: r/o obstruction Comparison: None TECHNIQUE: Frontal views of the abdomen was obtained. FINDINGS: Bowel gas pattern is unremarkable. The lung bases are unremarkable. No acute osseous abnormality identified. IMPRESSION: Nonobstructive bowel gas pattern. Large stool burden
[2025-03-25] MEDS: POTASSIUM EFFERVESENT TAB 25 MEQ PO ONE (09:31)
[2025-03-25] MEDS: BISACODYL 10 MG RECT SUPP PR ONE (09:32)
[2025-03-25 12:40] VITALS: BP 105/71; PULSE 90; RESP 18; TEMP 98.3; O2SAT 100
[2025-03-25] MEDS ORDERED: CEFP200T15 PO (15:24)
[2025-03-25] MEDS ORDERED: PANT40T PO (15:24)
[2025-03-25] MEDS ORDERED: METR-344 PO (15:24)
[2025-03-25 16:36] VITALS: BP 120/73; PULSE 102; RESP 18; TEMP 99; O2SAT 98
--- NOTE | 2025-03-25 18:17 | DVHDSRES ---
Discharge Summary Date of Admission Resident Creating Document: KARELY CUEVAS Mar 21, 2025 at 22:54 Date of Discharge: Mar 25, 2025 Admitting Diagnosis Acute complicated UTI Acute gastroenteritis Labs/Diagnostic Data: Laboratory Results Test 03/25/25 05:55 03/24/25 06:09 03/23/25 17:56 03/22/25 12:41 White Blood Count 8.3 10^3/uL (4.4-10.8) Red Blood Count 2.43 10^6/uL (4.0-5.20) Hemoglobin 7.3 g/dL (12.2-16.2) Hematocrit 21.6 % (36.0-46.0) Mean Corpuscular Volume 89.1 fL (80.0-100.0) Mean Corpuscular Hemoglobin 30.0 pg (28.0-32.0) Mean Corpuscular Hemoglobin Concent 33.6 g/dL (32.0-36.0) Red Cell Distribution Width 17.8 % (11.8-14.3) Platelet Count 279 10^3/uL (140-450) Mean Platelet Volume 10.8 fL (6.9-10.8) Neutrophils (%) (Auto) 63.3 % (37.0-80.0) Lymphocytes (%) (Auto) 25.8 % (10.0-50.0) Monocytes (%) (Auto) 7.8 % (0.0-12.0) Eosinophils (%) (Auto) 2.3 % (0.0-7.0) Basophils (%) (Auto) 0.8 % (0.0-2.0) Neutrophils # (Auto) 5.3 10 ^3/uL (1.6-8.6) Lymphocytes # (Auto) 2.2 10 ^3/uL (0.4-5.4) Monocytes # (Auto) 0.7 10 ^3/uL (0-1.3) Eosinophils # (Auto) 0.2 10 ^3/uL (0-0.8) Basophils # (Auto) 0.1 10 ^3/uL (0-0.2) Nucleated Red Blood Cells 0.0 % Sodium Level 146 mmol/L (136-145) Potassium Level 3.3 mmol/L (3.5-5.1) Chloride Level 109 mmol/L (98-107) Carbon Dioxide Level 26 mmol/L (20-31) Anion Gap 11 (5-15) Blood Urea Nitrogen 14 mg/dL (9-23) Creatinine 0.97 mg/dL (0.550-1.02) Glomerular Filtration Rate Calc 65 mL/min (>90) BUN/Creatinine Ratio 14.4 (10.0-20.0) Serum Glucose 100 mg/dL (74-106) Calcium Level 8.9 mg/dL (8.7-10.4) Vitamin B12 Level 1227 pg/mL (211-911) Folic Acid 7.07 ng/mL (>5.38) Magnesium Level 1.9 mg/dL (1.6-2.6) Urine Creatinine 183.86 mg/dL (30.0-125.0) Urine Protein/Creatinine Ratio 0.45 Urine Sodium 50 mmol/L (40-220) Urine Total Protein 81.9 mg/dL (1-14) Influenza Type A Antigen Negative (Negative) Influenza Type B Antigen Negative (Negative) SARS-CoV-2 Antigen (Rapid) Negative (NEGATIVE) Test 03/22/25 10:41 03/22/25 09:11 03/22/25 07:16 03/22/25 06:04 Stool Occult Blood Negative (Negative) Stool Occult Blood Sample #3 (Negative) Stool for White Cells None seen Prothrombin Time 11.5 sec (9.3-11.8) Prothrombin Time INR 1.09 (0.9-1.15) Activated Partial Thromboplast Time 25.6 SEC (24.5-34.5) Lactic Acid Level 1.4 mmol/L (0.4-2.0) Reticulocyte Count (auto) 6.76 % (0.5-1.5) Hemoglobin A1c < 3.8 % A1C (<5.7) Total Bilirubin 2.6 mg/dL (0.2-1.0) Direct Bilirubin 1.0 mg/dL (<0.3) Aspartate Amino Transferase (AST) 25 U/L (13-40) Alanine Aminotransferase (ALT) 22 U/L (7-40) Alkaline Phosphatase 71 U/L (46-116) Lactate Dehydrogenase 346 U/L (120-246) Total Protein 7.4 g/dL (5.7-8.2) Albumin 3.9 g/dL (3.2-4.8) Thyroid Stimulating Hormone (TSH) 1.79 uIU/mL (0.55-4.78) Test 03/21/25 20:57 03/21/25 18:30 03/21/25 17:54 Urine Color Dark-orange (Yellow) Urine Clarity Ex.turbid (Clear) Urine pH 6.0 (5.0-9.0) Urine Specific [place] 1.017 (1.001-1.035) Urine Protein 2+ (Negative) Urine Ketones Negative (Negative) Urine Blood 2+ /uL (Negative) Urine Nitrite Negative (Negative) Urine Bilirubin Negative (Negative) Urine Urobilinogen 8 mg/dL (Negative) Urine Leukocyte Esterase 3+ /uL (Negative) Urine RBC 26 /hpf (0 - 4) Urine WBC Clumps Present /hpf (None Seen) Urine Microscopic WBC 4957 /HPF (0-5) Urine Squamous Epithelial Cells Mod /hpf (<5) Urine Bacteria Many /hpf (None Seen) Urine Mucus Moderate (None Seen) Urine Glucose Normal mg/dL (Normal) C-Reactive Protein High Sensitivity 11.43 mg/dL (<1.0) Iron Level 66 ug/dL (50-170) Total Iron Binding Capacity 222 ug/dL (250-425) Percent Iron Saturation 29.7 % (15-50) Ferritin 334.6 ng/mL (10-291) Troponin I High Sensitivity 25 ng/L (</=34) Other Laboratory Tests 03/25/25 05:55 Brief Hx & Hospital Course: This is a 64-year-old female with past medical history of myasthenia gravis, hypertension, atrial fibrillation on anticoagulation with Eliquis, presented to the ER with chief complain of generalized weakness since 4 days. Patient reports gradual onset of her symptoms, progressively worsening, associated with loss of appetite and subjective fever. She also reported diarrhea that started 4 days back, initially 2-3 episodes of watery stools, yesterday she reported 6 episodes of watery stools, no blood seen. She also complains of associated nausea and abdominal pain, pain is described cramp like, 10/10, generalized, nonradiating, without relieving or aggravating factors. Patient also reported urinary hesitancy, incomplete voiding and increased frequency of urination. She had similar symptoms in the past due to episode of UTI few years ago. PMHx: Myasthenia gravis, hypertension, atrial fibrillation PSHx: Thymectomy, corrective eye surgery, hysterectomy Social history: Denies smoking, alcohol, drug use; home with family. Full code. Home medication: Pyridostigmine, valsartan, metoprolol, amlodipine, Eliquis Allergic history: No known allergies Brief hospital course: Patient came to the hospital with chief complaint of generalized weakness and diarrhea, nausea patient had acute complicated UTI, AMADOU due to be [place], for which urinalysis showed positive for UTI, blood culture urine cultures were ordered which showed no growth. Patient was started on IV ceftriaxone, low-salt diet and given IV fluids. Patient also had acute gastroenteritis, stool occult blood was corrected to rule out GI hemorrhage, IV metronidazole was started, GI was consulted for decreasing hemoglobin and Eliquis was held for possible EGD but patient had negative stool occult blood so patient was discharged. Patient had history of myasthenia gravis for which resumed home medication. Patient has hypertension for which we continued home medication. Patient had external hemorrhoids on rectal exam. Was advised to avoid dehydration and constipation. Patient is obese with a BMI of 36.8 for which patient was advised lifestyle modifications, diet, exercise for more than 18 minutes. Patient is stable for discharge, and patient understood discharge planning and is to follow-up with discharge Clinic in 1 week. General: Patient alert and oriented in person, place and time. Patient following commands. HEENT: Drooping left eyelid. Normocephalic, atraumatic, moist mucous membranes Respiratory/pulmonary: Midline thymectomy scar in chest, well healed. Clear lungs bilaterally, vesicular murmurs present in almost all lung morocho, no associated crackles or wheezes. Cardiovascular: Normal heart sounds S1 and S2 with no associated murmurs Abdomen: Abdomen nondistended, there is no pain to palpation in any of the abdominal quadrants, no palpable masses. Extremities: There is no peripheral edema present at the lower extremities. Peripheral Pulses: 3+ Radial (R). 3+ Radial (L). 3+ Dorsalis pedis (R). 3+ Dorsalis pedis(L) Skin: No rashes or pruritus, there is no sacral edema present at this time. Neurological: Intact cranial nerves with no focal neurologic deficits Rectal exam done by Dr Butler on admission shows external hemorrhoids, no active bleeding noted patient is to take cefpodoxime 200 mg p.o. b.i.d. metronidazole 500 mg tablet t.i.d. pantoprazole 40 mg p.o. daily Operations or Procedures ORDERING PHYSICIAN: ALANA BAILEY DO PROCEDURE(s): CXRP - CHEST PORTABLE REASON: weak ORDER NUMBER(s): [id number], ACCESSION NUMBER(s): [id number] CHEST RADIOGRAPH Indication: weak Technique: Single frontal view of the chest was obtained COMPARISON: XR CHEST 1 VIEW on DOS: 06/08/24 FINDINGS: Lines and Tubes: None Lungs: Clear Pleura: No effusion. No pneumothorax. Cardiomediastinal contours: Unremarkable Bones: Median sternotomy. No acute osseous abnormality IMPRESSION: No acute disease. ATED BY: MICHAEL WESLEY MD DICTATED DATE/TIME: 03/21/251905 ORDERING PHYSICIAN: KARELY CUEVAS PROCEDURE(s): KUB - KUB ABDOMEN SINGLE VIEW REASON: r/o obstruction ORDER NUMBER(s): [id number], ACCESSION NUMBER(s): [id number] Date: 03/25/2025 07:52 AM Examination: XY KUB ABDOMEN SINGLE VIEW History: r/o obstruction Comparison: None TECHNIQUE: Frontal views of the abdomen was obtained. FINDINGS: Bowel gas pattern is unremarkable. The lung bases are unremarkable. No acute osseous abnormality identified. IMPRESSION: Nonobstructive bowel gas pattern. Large stool burden ATED BY: CAMPOS STERLING MD DICTATED DATE/TIME: 03/25/25912 Condition at Discharge: Stable Final Diagnosis/Problems List Complicated UTI AMADOU hemodynamic instability (VMN) Acute gastroenteritis Ruled out GI hemorrhage Moderate normocytic anemia Hyperbilirubinemia Myasthenia gravis Hypertension Atrial fibrillation External hemorrhoids Hypokalemia Obesity, BMI 36.8 Discharge Disposition: Home Discharge Instruct/Medications Diet: Cardiac 2g Na,low cholest Activity: No Restrictions, As Tolerated Follow Up/Referral: Follow-up with discharge Clinic in 1 week Follow-up with PCP Medications: As per EMR Scheduled Amlodipine Besylate (Amlodipine Besylate), 1 TAB PO DAILY, (Reported) Apixaban Base (Eliquis), 5 MG PO BID, (Reported) Cefpodoxime Proxetil (Cefpodoxime Proxetil), 1 TAB PO BID Metoprolol Tartrate (Metoprolol Tartrate), 1 TAB PO BID, (Reported) Metronidazole (Flagyl), 1 TAB PO TID Pantoprazole Sodium Sesquihydr (Pantoprazole Sodium), 40 MG PO DAILY@0600 Valsartan-Hydrochlorothiazide (Diovan Hct), 1 TAB PO DAILY, (Reported) Miscellaneous Medications Ferrous Sulfate (Ferrous Sulfate), 325 MG PO, (Reported) Discharge Statement: "Patient was advised to return to the ER or call 911 if any headaches, dizziness, shortness of breath, chest pain, abdominal pain, bleeding, fevers, or worsening of medical condition. Patient was counseled about treatment plan, medications, possible side effects, patientverbalized understanding. All questions were answered to the best of my ability. This discharge took greater then 30 minutes in planning, reviewing documentation, counseling the patient, and discussing with other team members." ASSESSMENT ASSESSMENT Assessment Acute gastroenteritis Date of Service: Mar 25, 2025 Billing Provider: JOSE EASTON MD Common Visit Codes: 05332-YCU/OBS DISCH DAY >30min KARELY CUEVAS RESIDENT Mar 25, 2025 18:17 JOSE EASTON MD Mar 28, 2025 12:32
== END 2025-03-25 18:54 | disposition home or self-care (01) | DRG 463 ==
LOC: ER 17:01 → OVERFLOW 22:54 → EAST 03-23 15:37
PROVIDERS: ADMIT Internal Medicine; ATTEND Internal Medicine
DX: N30.00 Acute cystitis without hematuria (principal); N17.0 Acute kidney failure with tubular necrosis; D50.9 Iron deficiency anemia, unspecified; I48.91 Unspecified atrial fibrillation; G70.00 Myasthenia gravis without (acute) exacerbation; A04.9 Bacterial intestinal infection, unspecified; Z79.01 Long term (current) use of anticoagulants; E66.9 Obesity, unspecified; I10 Essential (primary) hypertension; D72.829 Elevated white blood cell count, unspecified; Z20.822 Contact with and (suspected) exposure to COVID-19; K64.4 Residual hemorrhoidal skin tags; E87.6 Hypokalemia; Z68.36 Body mass index [BMI] 36.0-36.9, adult; E80.6 Other disorders of bilirubin metabolism; Z74.01 Bed confinement status; Z90.710 Acquired absence of both cervix and uterus; Z79.899 Other long term (current) drug therapy
CPT/HCPCS: 36415; 71045; 74018; 80048; 80053; 81001; 82248; 82270; 82570; 82607; 82728; 82746; 83036; 83540; 83550; 83605; 83615; 83735; 84156; 84300; 84443; 84484; 85014; 85018; 85025; 85045; 85048; 85610; 85730; 86141; 86850; 86900; 86901; 87040; 87081; 87086; 87177; 87426; 87804; 93005; 96365; 99291; G0378; J3490